=== PATIENT | female | born 1965 | race Caucasian/White ===

== ENCOUNTER 2019-09-15 16:57 | Emergency (ER) | payer BC ==
[2019-09-15] MEDS ORDERED: KETOROLAC TROMETHAMINE 15 MG/ML VIAL IVPUSH ONE (17:07)
--- NOTE | 2019-09-15 17:07 | PDOC ---
History of Present Illness - General Chief Complaint: Pain Stated Complaint: left back pack pain Time Seen by Provider: 09/15/19 17:03 - History of Present Illness Initial Comments: The pt is a 53F w/ a history of RA and kidney stones w/ previous lithotripsy who presents for evaluation of 1 hour of left sided flank pain. The pain is similar to that of her previous kidney stone pain. The pain is achy, constant, is left flank and radiates to her groin, is associated with nausea and NBNB vomiting, and is not alleviated by anything she can identify. She has required a lithotripsy in the past Denies fevers/chills, chest pain, trouble breathing, dysuria, hematuria, diarrhea, blood in her stool, or vaginal bleeding/discharge. 09/15/19 17:25 Past History - Past Medical History Allergies/Adverse Reactions: Allergies Allergy/AdvReac Type Severity Reaction Status Date / Time Penicillins Allergy Verified 09/15/19 17:06 Home Medications: Ambulatory Orders Fluoxetine HCl 04/04/15 Oxycodone HCl/Acetaminophen [Percocet 5-325 mg Tablet] 1 tab PO Q6H PRN #10 tablet MDD 4 tabs 09/15/19 Tamsulosin HCl [Flomax] 0.4 mg PO DAILY #7 capsule 09/15/19 Kidney Stones: Yes Psychiatric Problems: Yes - Psycho Social/Smoking Cessation Hx Smoking History: Never smoked Hx Alcohol Use: No Drug/Substance Use Hx: No Substance Use Type: Alcohol Review of Systems - Review of Systems Able to Perform ROS?: Yes Comments:: GENERAL/CONSTITUTIONAL: No fever or chills. No weakness HEAD, EYES, EARS, NOSE AND THROAT: No change in vision. No change in hearing. No sore throat CARDIOVASCULAR: No chest pain or shortness of breath RESPIRATORY: Denies cough, hemoptysis GASTROINTESTINAL: No nausea, vomiting, diarrhea or constipation GENITOURINARY: per HPI MUSCULOSKELETAL: No joint or muscle swelling or pain. No neck pain SKIN: No rash NEUROLOGIC: No headache, vertigo, loss of consciousness, or change in strength/ sensation ENDOCRINE: No increased thirst. No abnormal weight change HEMATOLOGIC/LYMPHATIC: No anemia, easy bleeding, or history of blood clots ALLERGIC/IMMUNOLOGIC: No hives or skin allergy 09/15/19 17:06 Is the patient limited Kiswahili proficient: No *Physical Exam - Vital Signs Initial Vital Signs Temp Pulse Resp BP Pulse Ox 99.2 F 86 20 179/93 H 100 09/15/19 16:58 09/15/19 16:58 09/15/19 16:58 09/15/19 16:58 09/15/19 16:58 - Physical Exam GENERAL: Awake, alert, and oriented to person/place/time, in no acute distress HEAD: No signs of trauma, normoc ephalic, atraumatic EYES: PERRLA, EOMI, sclera anicteric, conjunctiva clear ENT: Hearing grossly normal, nares patent, oropharynx clear without exudates. Moist mucosa LUNGS: No distress, speaks in full sentences, clear to auscultation bilaterally HEART: Regular rate and rhythm, normal S1 and S2, no murmurs appreciated, peripheral pulses normal and equal bilaterally ABDOMEN: Soft, suprapubic and left flank TTP w/o rebound or guarding, normoactive bowel sounds EXTREMITIES: Normal inspection, Normal range of motion, no edema. No clubbing or cyanosis NEUROLOGICAL: Cranial nerves II through XII grossly intact. Normal speech, no focal sensorimotor deficits SKIN: Warm, Dry 09/15/19 17:07 ED Treatment Course - LABORATORY CBC & Chemistry Diagram: 09/15/19 18:00 09/15/19 18:00 Medical Decision Making - Medical Decision Making The pt is a 53F w/ a history of RA and kidney stones w/ previous lithotripsy who presents for evaluation of 1 hour of left sided flank pain. ED Course Labs sent CT A&P IVF, Toradol, Morphine, Zofran, and Flomax for symptomatic relief 09/15/19 18:09 Pt feels improved after meds CT pending UA w/o evidence of UTI, blood noted 09/15/19 18:20 Lytes unremarkable No STEPHANIE LFTs wnl No leukocytosis No anemia Pt resting comfortably Pt pending CT A&P to evaluate for likely stone size and position Pt signed out to night team 09/15/19 18:53 Discharge - Discharge Information Problems reviewed: Yes Clinical Impression/Diagnosis: Nephrolithiasis Condition: Stable - Admission No - Additional Discharge Information Prescriptions: Oxycodone HCl/Acetaminophen [Percocet 5-325 mg Tablet] 1 tab PO Q6H PRN #10 tablet MDD 4 tabs PRN Reason: Pain Tamsulosin HCl [Flomax] 0.4 mg PO DAILY #7 capsule - Follow up/Referral - Patient Discharge Instructions Patient Printed Discharge Instructions: Kidney Stones -- Adult - Post Discharge Activity Work/Back to School Note: Back to Work
--- NOTE | 2019-09-15 17:13 | PDOC ---
Attending Attestation - Resident Resident Name: AdanJarad - ED Attending Attestation I have performed the following: I have examined & evaluated the patient, The case was reviewed & discussed with the resident, I agree w/resident's findings & plan, Exceptions are as noted - HPI HPI: 09/15/19 17:42 53yo female with hx of RA and lithotrypsy for kidney stones presents for eval of L flank pain assoc with n/v. Pt states pain started acutely and was assoc with nbnb vomiting. Denies dysuria, hematuria, urgency, freq. States pain feels similar to prior kidney stones. - Physicial Exam PE: 09/15/19 17:43 Gen: aaox3, uncomfortable, in pain heart: +s1s2 reg lungs: cta b/l abd: soft, suprapubic ttp, LLQ ttp, L cva ttp ext: no c/c/e - Medical Decision Making 09/15/19 17:43 a/p: 53yo female with L flank pain -suspect renal colic -last kidney stone was years ago -will send labs, ct abd/pelvis -will send ua, ucx -will hydrate, toradol 09/15/19 17:44 pt still with pain despite toradol, will add zofran, morphine 09/15/19 17:51 pt states feeling better looks more comfortable states pressure in lower pelvis now suspect stone at UVJ 09/15/19 18:08 will add flomax 09/15/19 18:12 percocet rx sent for pain 09/15/19 18:13 blood in urine 09/15/19 18:[address] abd/pelvis labs reviewed stable h/h, wbc, renal function pt signed out to the oncoming ED physician pending ct and further eval
[2019-09-15 17:26] VITALS: TEMP 99.2; BMI 25.4
[2019-09-15] MEDS ORDERED: KETOROLAC TROMETHAMINE 30 MG/1 ML VIAL ONE (17:33)
[2019-09-15] MEDS ORDERED: SODIUM CHLORIDE 0.9% 1000 ML INFUS.BAG IV ONE (17:39)
[2019-09-15] MEDS ORDERED: morphine CARPU-JECT 4 MG/1 ML DISP.SYRIN IVPUSH ONE (17:39)
[2019-09-15] MEDS ORDERED: ONDANSETRON 4 MG/2 ML VIAL IVPUSH ONE (17:39)
[2019-09-15] MEDS ORDERED: ONDANSETRON 4 MG/2 ML VIAL ONE (17:53)
[2019-09-15] MEDS ORDERED: morphine SULFATE 4 MG/ML VIAL ONE (17:53)
[2019-09-15] MEDS ORDERED: TAMSULOSIN HCL 0.4 MG CAP PO ONE (18:09)
[2019-09-15 18:21] LABS: BASO % 0.2 % (0-2.0); EOS % 0.1 % (0-4.5); HEMATOCRIT 37.9 % (32.4-45.2); HEMOGLOBIN 12.8 GM/dl (10.7-15.3); LYMPH % 8.8 % (8-40); MCH 32.8 pg (25.7-33.7); MCHC 33.6 g/dl (32.0-36.0); MEAN CELL VOLUME 97.4 fl (80-96); MEAN PLT VOLUME 7.6 fl (7.5-11.1); MONO % 2.5 % (3.8-10.2); NEUT % 88.4 % (42.8-82.8); PLATELET COUNT 208 K/MM3 (134-434); RDW 12.4 % (11.6-15.6); WHITE BLOOD COUNT 9.9 K/mm3 (4.0-10.8)
[2019-09-15 18:21] LABS: EPITHELIAL CELLS MODERATE /hpf; URINE AMORPHOUS SEDIMENT 3+
[2019-09-15 18:27] VITALS: BP 160/99; PULSE 92
[2019-09-15 18:27] LABS: BILIRUBIN,TOTAL 0.8 mg/dl (0.2-1); CALCIUM 8.7 mg/dl (8.5-10); CREATININE 0.6 mg/dl (0.55-1.3); POTASSIUM 3.4 mmol/L (3.5-5.1); TOT PROT 6.1 g/dl (6.4-8.2)
[2019-09-15] MEDS ORDERED: TAMSULOSIN HCL 0.4 MG CAP ONE (18:54)
--- NOTE | 2019-09-15 19:11 | PDOC ---
*Physical Exam - Vital Signs Last Vital Signs Temp Pulse Resp BP Pulse Ox 99.2 F 92 H 20 160/99 100 09/15/19 16:58 09/15/19 18:25 09/15/19 16:58 09/15/19 18:25 09/15/19 18:25 ED Treatment Course - LABORATORY CBC & Chemistry Diagram: 09/15/19 18:00 09/15/19 18:00 - ADDITIONAL ORDERS Additional order review: Laboratory Results 09/15/19 09/15/19 18:00 17:39 Sodium 138 Potassium 3.4 L Chloride 103 Carbon Dioxide 26 Anion Gap 9 BUN 14.0 Creatinine 0.6 Est GFR (CKD-EPI)AfAm 118.93 Est GFR (CKD-EPI)NonAf 102.61 Random Glucose 126 H Calcium 8.7 Total Bilirubin 0.8 AST 26 ALT 23 Alkaline Phosphatase 76 Total Protein 6.1 L Albumin 4.0 Urine Color Yellow Urine Appearance Slightly Urine pH 7.0 Urine Protein Negative Urine Glucose (UA) Negative Urine Ketones Negative Urine Blood 2+ H Urine Nitrite Negative Urine Bilirubin Negative Urine Urobilinogen 0.2 Ur Leukocyte Esterase Negative Urine RBC 40-60 Urine WBC 0-2 Ur Transition Epith Cell Moderate Amorphous Sediment 3+ 09/15/19 18:00 RBC 3.90 MCV 97.4 H MCHC 33.6 RDW 12.4 MPV 7.6 Neutrophils % 88.4 H Lymphocytes % 8.8 Monocytes % 2.5 L Eosinophils % 0.1 Basophils % 0.2 - Medications Given in the ED: ED Medications Discontinued Medications Generic Name Dose Route Start Last Admin Trade Name Freq PRN Reason Stop Dose Admin Ketorolac Tromethamine 15 mg 09/15/19 17:07 09/15/19 17:34 Toradol Injection - IVPUSH 09/15/19 17:08 15 mg ONCE ONE Administration Morphine Sulfate 4 mg 09/15/19 17:39 09/15/19 17:58 Morphine Injection - IVPUSH 09/15/19 17:40 4 mg ONCE ONE Administration Ondansetron HCl 4 mg 09/15/19 17:39 09/15/19 17:51 Zofran Injection IVPUSH 09/15/19 17:40 4 mg ONCE ONE Administration Sodium Chloride 1,000 ml 09/15/19 17:39 09/15/19 17:51 Normal Saline - IV 09/15/19 17:40 1,000 ml ONCE ONE Administration Tamsulosin HCl 0.4 mg 09/15/19 18:09 09/15/19 18:56 Flomax - PO 09/15/19 18:10 0.4 mg ONCE ONE Administration ED Progress Note - Progress Note Progress Note: 09/15/19 19:10 Care this patient was transferred to ma from Dr. Galarza at 1900 hrs. Patient is a 53-year-old female with history of renal colic in the past. Patient comes in with symptoms consistent with renal colic. Patient has a work- up in progress and is going to get a CAT scan. We will follow-up work-up follow -up CAT scan and make it appropriate disposition. 09/15/19 20:57 Patient's urine shows a moderate amount of blood in it CAT scan was performed which does show a 4 mm stone at the left UVJ There was also a finding of a 3 mm pulmonary nodule in the lingula that patient was made aware of. Patient was given a copy of her CAT scan and recommended that she follow-up with her both her primary care doctor as well as a urologist Discharge - Discharge Information Problems reviewed: Yes Clinical Impression/Diagnosis: Nephrolithiasis, Pulmonary nodule seen on imaging study Condition: Stable Disposition: HOME - Admission No - Additional Discharge Information Prescriptions: Oxycodone HCl/Acetaminophen [Percocet 5-325 mg Tablet] 1 tab PO Q6H PRN #10 tablet MDD 4 tabs PRN Reason: Pain Tamsulosin HCl [Flomax] 0.4 mg PO DAILY #7 capsule - Follow up/Referral Referrals: Ton Damon MD [Staff Physician] - - Patient Discharge Instructions Patient Printed Discharge Instructions: Kidney Stones -- Adult Additional Instructions: Your CAT scan shows that the stone is very close to passing into the bladder.. Prescriptions for Percocet to control the pain, nausea medicine and medicine to help keep the urine flowing were all sent to the pharmacy. beet end supervisor the prescriptions and take as prescribed. You are given a copy of your CAT scan it is important that you take your CAT scan with you to see your primary care doctor and discuss the significance of the small nodule seen in your lungs. In addition to following up with your primary care doctor you should also follow -up with a urologist. Return to the emergency department immediately with ANY new, persistent or worsening symptoms. Continue any medications as previously prescribed by your physician. You should follow up with your primary doctor as soon as possible regarding today's emergency department visit. . Please make sure your doctor reviews the results of your emergency evaluation. Thank you for coming to the Emergency Department today for your care. It was a pleasure to see you today. Please note that your evaluation is INCOMPLETE until you follow-up with your doctor. - Post Discharge Activity Work/Back to School Note: Back to Work
[2019-09-15] MEDS ORDERED: ONDANSETRON *ODT* 4 MG TABLET SL ONE (21:21)
[2019-09-15] MEDS ORDERED: ONDANSETRON *ODT* 4 MG TABLET ONE (21:24)
== END 2019-09-15 21:25 | disposition home or self-care (01) ==
LOC: FER 16:57
PROC: 3E0333Z Introduction of Anti-inflammatory into Peripheral Vein, Percutaneous Approach (ICD-10-PCS; principal; 2019-09-15)
PROC: 3E033NZ Introduction of Analgesics, Hypnotics, Sedatives into Peripheral Vein, Percutaneous Approach (ICD-10-PCS; 2019-09-15)
PROC: 3E033GC Introduction of Other Therapeutic Substance into Peripheral Vein, Percutaneous Approach (ICD-10-PCS; 2019-09-15)
DX: N20.0 Calculus of kidney (principal); Z88.0 Allergy status to penicillin; M06.9 Rheumatoid arthritis, unspecified
CPT/HCPCS: 36415; 74176-TC; 80053; 81003; 81015; 85025; 87086; 99282-25; J7030; Q0162